=== PATIENT | female | born 1945 | race Caucasian/White ===

== ENCOUNTER 2019-05-29 22:56 | Inpatient (IN) ==
[2019-05-29] MEDS ORDERED: ACETAMINOPHEN 650 MG SUPP.RECT PR ONE (23:18)
[2019-05-29] MEDS ORDERED: cefTRIAXone 1 GM VIAL IV ONE (23:19)
[2019-05-29] MEDS ORDERED: 0.9 % SODIUM CHLORIDE 1,000 ML IV ONE ×2 (23:19)
--- NOTE | 2019-05-29 23:41 | Emergency Department Note ---
Fever HPI - General Chief Complaint: Fever Stated Complaint: fever, weakness Time Seen by Provider: 05/29/19 23:18 Source: EMS Mode of arrival: EMS Limitations: no limitations - History of Present Illness MD complaint: fever, weakness, other (Altered mental status) Onset (ago): hour(s) Associated symptoms: Reports: chills, rigors, nausea, vomiting Improves with: nothing Worsens with: nothing Treatments prior to arrival fever: other (Patient was seen and treated in the emergency department hours prior to return, patient was started on ciprofloxacin for urinary tract infection took that first dose here and went home seem to be doing okay and then had sudden decompensation. This decompensation included fever altered mental status vomiting and loss of control of bowels) - Related Data Home Medications Medication Instructions Recorded Confirmed pregabalin 50 mg capsule 50 mg PO TID 04/11/19 05/30/19 Previous Rx's Medication Instructions Recorded albuterol sulfate HFA 90 2 inh INHALATION .Q4-6H PRN #8.5 g 05/22/16 mcg/actuation aerosol inhaler lisinopril 5 mg tablet 5 mg PO QDAY #90 tab 12/14/18 methylprednisolone 4 mg tablets in 4 mg PO PER PKG DIR #21 tab 03/15/19 a dose pack insulin glargine (U-100) 100 10 unit SUB-Q QDAY #9 ml 04/05/19 unit/mL (3 mL) subcutaneous pen cyclobenzaprine 10 mg tablet 10 mg PO TID PRN #60 tab 04/11/19 cholecalciferol (vitamin D3) 50,000 unit PO MONTHLY #12 cap 04/28/19 50,000 unit capsule hydroxychloroquine 200 mg tablet 200 mg PO BID #180 tab 04/28/19 prednisone 5 mg tablet 5 mg PO QDAY #30 tab 04/28/19 leflunomide 20 mg tablet 20 mg PO QDAY #90 tab 05/12/19 blood sugar diagnostic strips See Dose Instructions .ROUTE 05/27/19 .MEDSUPPLY #100 each lancets 26 gauge See Dose Instructions .ROUTE 05/27/19 .MEDSUPPLY #100 each Ciprofloxacin [Cipro] 500 mg PO BID #14 tab 05/29/19 Allergies Allergy/AdvReac Type Severity Reaction Status Date / Time codeine Allergy Unknown Unknown Verified 05/29/19 23:09 ezetimibe [From Zetia] AdvReac Mild Diarrhea Verified 05/29/19 23:09 fenofibrate AdvReac Mild Diarrhea Verified 05/29/19 23:09 Lactobacillus AdvReac Mild Diarrhea Verified 05/29/19 23:09 Latex, Natural Rubber AdvReac Mild Rash Verified 05/29/19 23:09 Tnfkfdr-Amb-Wei Reductase AdvReac Mild Diarrhea Verified 05/29/19 23:09 Inhibitor Review of Systems Limitations: ROS unobtainable due to patients medical condition Fever PMH - Past Medical History PMFSH Narrative: All Active Problems (Last Reviewed 05/05/19 @ 12:49 by Jordyn Wilson PA-C) UTI (urinary tract infection) (Acute) Recurrent UTI (Acute) DDD (degenerative disc disease), lumbar (Chronic) Back pain (Acute) Squamous cell carcinoma (Chronic) Fibromyalgia (Chronic) Vasculitis (Acute) Uncontrolled type 2 diabetes mellitus (Chronic) Tachycardia (Acute) Rash (Acute) Rash of genital area (Acute) Polyarthralgia (Acute) Rheumatoid arthritis (Acute) Low vitamin D level (Chronic) Long-term current use of steroids (Acute) Dizziness (Acute) Osteoarthritis (Acute) Encounter for long-term current use of high risk medication (Acute) Inflammatory arthritis (Chronic) Systemic sclerosis (Chronic) History of tonsillectomy (Acute) History of cardiac catheterization (Acute) History of cholecystectomy (Acute) History of surgery (Acute) History of carpal tunnel repair (Acute) Allergic rhinitis due to pollen (Acute) Pseudophakia (Acute) Obesity (Acute) Hypertension, essential (Acute) Hyperlipidemia (Acute) Glaucoma (Acute) DM type 2 (diabetes mellitus, type 2) (Chronic) Chest pain (Acute) Asthma (Acute) Aortic stenosis (Acute) Past Surgical History (Last Reviewed 05/05/19 @ 12:49 by Jordyn Wilson PA-C) History of tonsillectomy (Acute) History of cardiac catheterization (Acute) History of cholecystectomy (Acute) History of surgery (Acute) History of carpal tunnel repair (Acute) - Social History smoking status: Former smoker Physical Exam Limitations: altered mental status General appearance: alert, in distress Head: atraumatic, normocephalic Eye: Present: normal appearance, PERRL, EOMI. Absent: scleral icterus, conjunct ival injection ENT: Present: normal oropharynx, mucous membranes moist Neck: Present: trachea midline. Absent: lymphadenopathy, thyromegaly Chest: Present: symmetric chest wall rise Respiratory: Present: normal lung sounds bilaterally. Absent: respiratory distress, wheezes, stridor, accessory muscle use, prolonged expiratory phase Cardiovascular: Present: normal rhythm, tachycardia. Absent: systolic murmur, diastolic murmur Abdominal: Present: soft. Absent: distention, tenderness, guarding, rebound, rigidity, organomegaly, mass Extremities: Absent: pedal edema, pretibial edema, calf tenderness Back: Absent: CVA tenderness (R), CVA tenderness (L), spinous process tenderness Neurological: Present: alert, oriented X3 Psychiatric: Present: normal affect, normal mood Skin: Present: warm, dry Course Course Narrative: Patient recently seen and discharged for urinary tract infection. Did receive first dose of ciprofloxacin here in the emergency department and was then disc harged. Patient seemed to be doing well initially but rapidly decompensated noting significant fever altered mental status loss of control of her bowels. Patient now in sepsis at this point in time. Vital Signs Temperature 103.2 F H 05/29/19 22:56 Pulse Rate 126 H 05/29/19 22:56 Respiratory Rate 30 H 05/29/19 22:56 Blood Pressure 146/101 05/29/19 22:56 Pulse Oximetry (%) 92 05/29/19 22:56 Temperature 100.6 F H 05/30/19 05:00 Pulse Rate 112 H 05/30/19 06:41 Respiratory Rate 31 H 05/30/19 06:41 Blood Pressure 96/55 05/30/19 06:41 Pulse Oximetry (%) 91 05/30/19 06:45 Fever - Lab Data Result diagrams: 05/29/19 23:30 05/29/19 23:30 Lab Results 05/29/19 05/29/19 05/29/19 Range/Units 23:30 23:30 23:30 WBC 4.0 L (4.5-11.0) K/mcL RBC 3.93 L (4.00-5.20) M/mcL Hgb 12.2 (12.0-15.0) g/dL Hct 36.6 (36.0-48.0) % MCV 93.1 (80.0-100.0) fL MCH 31.0 (26.0-34.0) pg MCHC 33.3 (31.0-36.0) g/dL RDW 13.7 (11.5-14.5) % Plt Count 235 (140-440) K/mcL MPV 9.1 (7.4-10.4) fL Gran % 94.7 H (38.0-78.0) % Lymph % (Auto) 5.1 L (15.5-49.0) % [place] % (Auto) 0.1 L (1.0-12.0) % Eos % (Auto) 0 (0.0-7.0) % Baso % (Auto) 0.1 (0.0-2.0) % Gran # 3.8 (1.8-8.0) K/mcL Lymph # (Auto) 0.2 L (1.5-4.8) K/mcL [place] # (Auto) 0 L (0.1-0.9) K/mcL Eos # (Auto) 0 (0.0-0.7) K/mcL Baso # (Auto) 0 (0.0-0.3) K/mcL VBG Lactic Acid 3.8 H (0.5-2.0) mmol/L Sodium 136 (133-145) mmol/L Potassium 3.6 (3.3-5.1) mmol/L Chloride 100 (96-108) mmol/L Carbon Dioxide 19 L (22-30) mmol/L Anion Gap 17.0 H (8-16) BUN 23 (8-23) mg/dl Creatinine 1.3 H (0.6-1.1) mg/dl GFR Calculation 41 Glucose 262 H (70-105) mg/dL Calcium 8.5 L (8.6-10.4) mg/dl Total Bilirubin 0.8 (0.0-1.0) mg/dL AST 30 (0-37) U/l ALT 24 (0-40) U/l Alkaline Phosphatase 127 H (39-117) U/L Total Protein 6.6 (5.9-8.4) gm/dL Albumin 3.7 (3.2-5.2) gm/dL Globulin 2.9 (2.2-3.7) gm/dL Albumin/Globulin Ratio 1.3 (1.0-2.3) Urine Color Urine Appearance Urine pH (5.0-9.0) Ur Specific [place] (1.000-1.035) Urine Protein (NEG) mg/dL Urine Glucose (UA) (NEG) mg/dL Urine Ketones (NEG) mg/dL Urine Occult Blood (<0.03) mg/dL Urine Nitrate (NEG) Urine Bilirubin (NEG) mg/dL Urine Urobilinogen (NEG) mg/dL Ur Leukocyte Esterase (NEG) /uL Urine RBC (0-1) /hpf Urine WBC (0-4) /hpf Ur Squamous Epith Cells (0-4) /hpf Urine Bacteria (0) /hpf Hyaline Casts (0-2) /lpf Urine Mucus (0) /hpf Ur Culture Indicated? 05/30/19 Range/Units 00:00 WBC (4.5-11.0) K/mcL RBC (4.00-5.20) M/mcL Hgb (12.0-15.0) g/dL Hct (36.0-48.0) % MCV (80.0-100.0) fL MCH (26.0-34.0) pg MCHC (31.0-36.0) g/dL RDW (11.5-14.5) % Plt Count (140-440) K/mcL MPV (7.4-10.4) fL Gran % (38.0-78.0) % Lymph % (Auto) (15.5-49.0) % [place] % (Auto) (1.0-12.0) % Eos % (Auto) (0.0-7.0) % Baso % (Auto) (0.0-2.0) % Gran # (1.8-8.0) K/mcL Lymph # (Auto) (1.5-4.8) K/mcL [place] # (Auto) (0.1-0.9) K/mcL Eos # (Auto) (0.0-0.7) K/mcL Baso # (Auto) (0.0-0.3) K/mcL VBG Lactic Acid (0.5-2.0) mmol/L Sodium (133-145) mmol/L Potassium (3.3-5.1) mmol/L Chloride (96-108) mmol/L Carbon Dioxide (22-30) mmol/L Anion Gap (8-16) BUN (8-23) mg/dl Creatinine (0.6-1.1) mg/dl GFR Calculation Glucose (70-105) mg/dL Calcium (8.6-10.4) mg/dl Total Bilirubin (0.0-1.0) mg/dL AST (0-37) U/l ALT (0-40) U/l Alkaline Phosphatase (39-117) U/L Total Protein (5.9-8.4) gm/dL Albumin (3.2-5.2) gm/dL Globulin (2.2-3.7) gm/dL Albumin/Globulin Ratio (1.0-2.3) Urine Color Yellow Urine Appearance Clear Urine pH 6.0 (5.0-9.0) Ur Specific [place] 1.011 (1.000-1.035) Urine Protein 100 A (NEG) mg/dL Urine Glucose (UA) 50 A (NEG) mg/dL Urine Ketones Neg (NEG) mg/dL Urine Occult Blood >=1.0 A (<0.03) mg/dL Urine Nitrate Neg (NEG) Urine Bilirubin Neg (NEG) mg/dL Urine Urobilinogen Neg (NEG) mg/dL Ur Leukocyte Esterase 25 A (NEG) /uL Urine RBC > 182 H (0-1) /hpf Urine WBC 20 H (0-4) /hpf Ur Squamous Epith Cells < 1 (0-4) /hpf Urine Bacteria 0 (0) /hpf Hyaline Casts 2 (0-2) /lpf Urine Mucus Few (0) /hpf Ur Culture Indicated? Yes - EKG Data EKG shows normal: sinus rhythm Rate: tachycardia Rhythm: NSR P waves: normal Heart block present: None ST segment elevation in: None ST segment depression in: None T wave inversions noted in: None QTc: normal Critical Care Time Critical Care Time: Yes Total Critical Care Time: 65 Attestation: This critical care time was direct patient care exclusive of other procedures. Disposition Pt seen by WHIRLEY OPERATOR/PA only: No Clinical Impression: Sepsis Qualifiers: Sepsis type: Escherichia coli Sepsis acute organ dysfunction status: with acute organ dysfunction Severe sepsis acute organ dysfunction type: encephalopathy Severe sepsis shock status: without septic shock Qualified Code(s): A41.51 - Sepsis due to Escherichia coli [E. coli] UTI (urinary tract infection) Qualifiers: Urinary tract infection type: acute cystitis Rheumatoid arthritis Qualifiers: Rheumatoid arthritis location: multiple sites Rheumatoid factor presence: without rheumatoid factor Qualified Code(s): M06.09 - Rheumatoid arthritis without rheumatoid factor, multiple sites DM type 2 (diabetes mellitus, type 2) Qualifiers: Diabetes mellitus termite helper insulin use: without penitentiary use Diabetes me llitus complication status: with unspecified complications Qualified Code(s): E11.8 - Type 2 diabetes mellitus with unspecified complications Disposition: Xfer As Inpt ([facility]) Condition: Critical
[2019-05-30] MEDS ORDERED: cefTRIAXone 1 GM VIAL IV ONE (00:02)
[2019-05-30 00:28] LABS: Basophils # (Auto) 0 K/mcL (0.0-0.3); Basophils % (Auto) 0.1 % (0.0-2.0); Eosinophils # (Auto) 0 K/mcL (0.0-0.7); Eosinophils % (Auto) 0 % (0.0-7.0); Granulocytes % (Auto) 94.7 % (38.0-78.0); Hematocrit 36.6 % (36.0-48.0); Hemoglobin 12.2 g/dL (12.0-15.0); Lymphocytes # (Auto) 0.2 K/mcL (1.5-4.8); Lymphocytes % (Auto) 5.1 % (15.5-49.0); Mean Cell Volume 93.1 fL (80.0-100.0); Mean Corpuscular HGB Conc 33.3 g/dL (31.0-36.0); Mean Platelet Volume 9.1 fL (7.4-10.4); Monocytes # (Auto) 0 K/mcL (0.1-0.9); Monocytes % (Auto) 0.1 % (1.0-12.0); Platelet Count 235 K/mcL (140-440); RBC 3.93 M/mcL (4.00-5.20); Red Cell Distribution Width 13.7 % (11.5-14.5)
[2019-05-30 00:45] LABS: ALT/SGPT 24 U/l (0-40); AST/SGOT 30 U/l (0-37); Albumin 3.7 gm/dL (3.2-5.2); Albumin/Globulin Ratio 1.3 (1.0-2.3); Alkaline Phosphatase 127 U/L (39-117); Bilirubin,Total 0.8 mg/dL (0.0-1.0); Blood Urea Nitrogen 23 mg/dl (8-23); Calcium 8.5 mg/dl (8.6-10.4); Carbon Dioxide 19 mmol/L (22-30); Chloride 100 mmol/L (96-108); Globulin 2.9 gm/dL (2.2-3.7); Glomerular Filtration Rate 41; Glucose 262 mg/dL (70-105)
[2019-05-30 00:58] LABS: Appearance,Urine CLEAR; Bacteria,Urine 0 /hpf (0); Bilirubin,Urine NEG (NEG); Color,Urine YELLOW; Culture Indicated,Urine YES; Glucose,Urine (UA) 50 mg/dL (NEG); Ketones,Urine NEG (NEG); Leukocyte Esterase,Urine 25 /uL (NEG); Mucus,Urine FEW /hpf (0); Nitrate,Urine NEG (NEG); Protein,Urine 100 mg/dL (NEG); Specific Gravity,Urine 1.011 (1.000-1.035); Urine Blood >=1.0 mg/dL (<0.03); Urine Hyaline Cast 2 /lpf (0-2); Urine RBC > 182 /hpf (0-1); Urine Squamous Epithelial Cell < 1 /hpf (0-4); Urine WBC 20 /hpf (0-4); Urobilinogen,Urine NEG (NEG)
[2019-05-30] MEDS ORDERED: 0.9 % SODIUM CHLORIDE 1,000 ML IV SCH ×4 (01:00→08:06)
[2019-05-30] MEDS: PIPERACILLIN SODIUM/TAZOBACTAM 3.375 GM in DEXTROSE 5% IN WATER 50 ML IV SCH ×4 (02:05→17:50)
[2019-05-30] MEDS ORDERED: INSULIN LISPRO 1 UNIT/0.01 ML UNIT SQ ONE ×2 (02:10→04:39)
[2019-05-30] MEDS ORDERED: ONDANSETRON 4 MG/2 ML VIAL ONE (02:10)
[2019-05-30] MEDS: ONDANSETRON 4 MG/2 ML VIAL IV PRN ×4 (02:11→17:50)
[2019-05-30] MEDS: INSULIN LISPRO 1 UNIT/0.01 ML UNIT SQ SCH ×6 (02:11→20:27)
[2019-05-30] MEDS ORDERED: 0.9 % SODIUM CHLORIDE 1,000 ML IV ONE (03:45)
[2019-05-30] MEDS: ACETAMINOPHEN 325 MG TABLET PO PRN ×2 (04:43→17:18)
[2019-05-30] MEDS ORDERED: 0.9 % SODIUM CHLORIDE 250 ML IV ONE ×4 (06:11→07:03)
[2019-05-30] MEDS ORDERED: HYDROCORTISONE SOD SUCC 100 MG VIAL IV ONE (06:14)
--- NOTE | 2019-05-30 07:21 | Internal Med History&Physical ---
Medical - H&P: HPI Patient information: Note initiated : 05/30/19 at 7:16 am Service Date, if different from initiated Date: [] Patient: Roro Simmons 73 y/o F admitted on 05/30/19 for fever, weakness. Chief Complaint: [] History of present illness: Ms. Simmons is a 73 year old F Who first presented to the ER during the day for hematuria and some bladder pain and urinary incontinence (urinary and bowel incontinence is common for her because of her chronic back pain and sciatica she says). se was diagnosed with UTI and discharged. She presented back to the ED several hours later with rigors and nausea vomiting headache. Patient states she went to bed Thursday night feeling fine but woke up tired Thursday morning with some abdominal discomfort over the lower central region she had some discomfort with urination. Abdominal pain is achy and nonradiating. Symptoms worsened throughout the day including the Rigor's later on. Last urine tract infection was a few months ago she went into clinic and received antibiotic. She receives spinal injections by Dr. Davis for chronic back pain. She denies any chest pain coughing shortness of breath. Bowel habits are normal for her which includes occasional diarrhea or constipation. In the ED she is found to be tachycardic tachypneic with altered mental status. He had a lactate of 3.8. And increased creatinine from earlier in the day. She started becoming hypotensive around shift change earlier this morning. And was started on vasopressors. Review of Systems: Positives as above. Denies chest pain/cough/dyspnea. Remaining 10 point review of system reviewed negative Medical - H&P: PMH Medical history: Medical History (Last Reviewed 05/05/19 @ 12:49 by Jordyn Wilson PA-C) DDD (degenerative disc disease), lumbar (Chronic) Back pain (Acute) Fibromyalgia (Chronic) Vasculitis (Acute) Uncontrolled type 2 diabetes mellitus (Chronic) Polyarthralgia (Acute) Rheumatoid arthritis (Acute) Low vitamin D level (Chronic) Long-term current use of steroids (Acute) Osteoarthritis (Acute) Encounter for long-term current use of high risk medication (Acute) Inflammatory arthritis (Chronic) Rheumatic disease (Suspected) Systemic sclerosis (Chronic) Allergic rhinitis due to pollen (Acute) Pseudophakia (Acute) Obesity (Acute) Hypertension, essential (Acute) Hyperlipidemia (Acute) Glaucoma (Acute) DM type 2 (diabetes mellitus, type 2) (Chronic) Chest pain (Acute) Asthma (Acute) Aortic stenosis (Acute) Past Surgical History (Last Reviewed 05/05/19 @ 12:49 by Jordyn Wilson PA-C) History of tonsillectomy (Acute) History of cardiac catheterization (Acute) History of cholecystectomy (Acute) History of surgery (Acute) History of carpal tunnel repair (Acute) Family History (Last Reviewed 05/05/19 @ 12:49 by Jordyn Wilson PA-C) Unknown Alcohol abuse Allergic rhinitis Family history of diabetes mellitus Family history of mental disorder Hyperlipidemia Hypertension Migraine Cerebrovascular accident Brother Alzheimer's disease Asthma Lupus erythematosus Father Alzheimer's disease Mother Alzheimer's disease Acute myocardial infarction Social History (Last Updated 05/05/19 @ 15:49 by Jordyn Wilson PA-C) Denies smoking Denies alcohol use Ambulates independently Lives at home with family Medical - H&P: Meds Home Medications Medication Instructions Recorded Confirmed Type albuterol sulfate HFA 90 2 inh INHALATION .Q4-6H PRN #8.5 g 05/22/16 05/30/19 Rx mcg/actuation aerosol inhaler lisinopril 5 mg tablet 5 mg PO QDAY #90 tab 12/14/18 05/30/19 Rx methylprednisolone 4 mg tablets in 4 mg PO PER PKG DIR #21 tab 03/15/19 05/30/19 Rx a dose pack insulin glargine (U-100) 100 10 unit SUB-Q QDAY #9 ml 04/05/19 05/30/19 Rx unit/mL (3 mL) subcutaneous pen cyclobenzaprine 10 mg tablet 10 mg PO TID PRN #60 tab 04/11/19 05/30/19 Rx pregabalin 50 mg capsule 50 mg PO TID 04/11/19 05/30/19 History cholecalciferol (vitamin D3) 50,000 unit PO MONTHLY #12 cap 04/28/19 05/30/19 Rx 50,000 unit capsule hydroxychloroquine 200 mg tablet 200 mg PO BID #180 tab 04/28/19 05/30/19 Rx prednisone 5 mg tablet 5 mg PO QDAY #30 tab 04/28/19 05/30/19 Rx leflunomide 20 mg tablet 20 mg PO QDAY #90 tab 05/12/19 05/30/19 Rx blood sugar diagnostic strips See Dose Instructions .ROUTE 05/27/19 Rx .MEDSUPPLY #100 each lancets 26 gauge See Dose Instructions .ROUTE 05/27/19 Rx .MEDSUPPLY #100 each Ciprofloxacin [Cipro] 500 mg PO BID #14 tab 05/29/19 05/30/19 Rx Allergies Allergy/AdvReac Type Severity Reaction Status Date / Time codeine Allergy Unknown Unknown Verified 05/29/19 23:09 ezetimibe [From Zetia] AdvReac Mild Diarrhea Verified 05/29/19 23:09 fenofibrate AdvReac Mild Diarrhea Verified 05/29/19 23:09 Lactobacillus AdvReac Mild Diarrhea Verified 05/29/19 23:09 Latex, Natural Rubber AdvReac Mild Rash Verified 05/29/19 23:09 Hxjhaax-Gwe-Gle Reductase AdvReac Mild Diarrhea Verified 05/29/19 23:09 Inhibitor Medical - H&P: Exam - Constitutional Vitals: Temp Pulse Resp BP Pulse Ox 100.6 F H 112 H 31 H 96/55 91 05/30/19 05:00 05/30/19 06:41 05/30/19 06:41 05/30/19 06:41 05/30/19 06:45 Exam: General: Alert, Awake, No acute Distress Eyes/N/T: EOMI, PEERL, DMM Head/Neck: neck supple, normocephalic atraumatic CV: RRR, 1/6 SM, normal s1/s2 Pulm: Clear b/l, no wheezing/rhonchi/rales Abd: soft, tender to palpation hypogastrium, +BS x4, protuberant Ext: no clubbing/cyanosis/edema Neuro: Alert, no focal deficits, moves all extremities, CN 2-12 grossly intact, symmetrical strength b/l upper/lower, sensations intact b/l upper/lower Skin: warm/dry Medical - H&P: Reslt - Labs CBC & Chem 7: 05/29/19 23:30 05/29/19 23:30 Labs: Short CBC 05/29/19 Range/Units 23:30 WBC 4.0 L (4.5-11.0) K/mcL Hgb 12.2 (12.0-15.0) g/dL Hct 36.6 (36.0-48.0) % Plt Count 235 (140-440) K/mcL BMP 05/29/19 23:30 Sodium 136 Potassium 3.6 Chloride 100 Carbon Dioxide 19 L BUN 23 Creatinine 1.3 H Glucose 262 H Calcium 8.5 L Liver Function 05/29/19 Range/Units 23:30 Total Bilirubin 0.8 (0.0-1.0) mg/dL AST 30 (0-37) U/l ALT 24 (0-40) U/l Alkaline Phosphatase 127 H (39-117) U/L Albumin 3.7 (3.2-5.2) gm/dL Urine 05/30/19 Range/Units 00:00 Urine Color Yellow Urine Appearance Clear Urine pH 6.0 (5.0-9.0) Ur Specific [place] 1.011 (1.000-1.035) Urine Protein 100 A (NEG) mg/dL Urine Glucose (UA) 50 A (NEG) mg/dL Medical - H&P: A/P - Narrative A/P Narrative: A: *Sepsic Shock: -lactic acidosis *UTI: *Abd pain: over bladder, but severe *Encephalopathy: 2/2 sepsis, Improved *ESPERANZA on CKD II: *DM w/hyperglycemia: A1c in 03.11 *RA on chronic Prednisone: *HTN: on lisinopril *DJD lumbar, chronic pain: Follows with pain clinic * P: -vasopressors -IVF's, f/u lactate -vanc/Zosyn, pending BC/UC. MRSA screen neg -i/o's, weights -ct abd -stress dose steroids (wean when off vasopressors) to home prednisone -pain control for chr LBP, will try lidoderm and APAP first before narcotics given hypotension -ACEI held -basal and SSI -pt/ot -ppx: lovenox/pepcid full code Medical - H&P: Qual - Stroke Symptom Onset Unknown: No - VTE Deep Vein Thrombosis/Pulmonary Embolism Present on Admission: No
[2019-05-30] MEDS ORDERED: VANCOMYCIN PER PHARMACY IV SCH (08:23)
[2019-05-30] MEDS ORDERED: NOREPINEPHRINE BITARTRATE 16 MG in 0.9 % SODIUM CHLORIDE 234 ML IV SCH (08:30)
[2019-05-30] MEDS: VANCOMYCIN 1,000 MG in 0.9 % SODIUM CHLORIDE 250 ML IV SCH ×2 (08:40→21:46)
[2019-05-30] MEDS ORDERED: PROCHLORPERAZINE 10 MG/2 ML VIAL IV PRN (09:35)
[2019-05-30] MEDS ORDERED: MAGNESIUM SULFATE 2 GM/50 ML BAG IV PRN (09:35)
[2019-05-30] MEDS ORDERED: POLYETHYLENE GLYCOL 3350 17 GM PACKET PO PRN (09:35)
[2019-05-30] MEDS ORDERED: IPRATROPIUM/ALBUTEROL 3 ML AMPUL.NEB NEB PRN (09:35)
[2019-05-30] MEDS ORDERED: POTASSIUM CHLORIDE 40 MEQ in DEXTROSE 5% IN WATER 500 ML IV PRN (09:35)
[2019-05-30] MEDS ORDERED: POTASSIUM CHLORIDE 20 MEQ TABLET PO PRN ×2 (09:35)
[2019-05-30] MEDS: ENOXAPARIN 40 MG/0.4 ML SYRINGE SQ SCH (09:37)
[2019-05-30] MEDS: FAMOTIDINE/PF 20 MG/2 ML VIAL IV SCH ×2 (09:37→21:46)
[2019-05-30] MEDS ORDERED: CYCLOBENZAPRINE 10 MG TABLET PO PRN (09:39)
[2019-05-30 09:50] LABS: Hematocrit 29.8 % (36.0-48.0); Hemoglobin 9.9 g/dL (12.0-15.0); Mean Cell Volume 93.6 fL (80.0-100.0); Mean Corpuscular HGB Conc 33.3 g/dL (31.0-36.0); Mean Platelet Volume 9.7 fL (7.4-10.4); Platelet Count 159 K/mcL (140-440); RBC 3.18 M/mcL (4.00-5.20); Red Cell Distribution Width 13.7 % (11.5-14.5); WBC 14.5 K/mcL (4.5-11.0)
[2019-05-30 10:23] LABS: Band Neutrophils % 37 % (0-10); Eosinophils % (Manual) 1 % (0-7); Hypochromasia 1+ (NONE SEEN); Lymphocytes % 4 % (15-49); Monocytes % (Manual) 7 % (1-12); Platelet Estimate NORMAL (NORMAL); RBC Morphology ABNORM (NORMAL); Segmented Neutrophils % 51 % (38-78)
[2019-05-30] MEDS: LIDOCAINE PATCH TOPICAL SCH (10:30)
[2019-05-30] MEDS: HYDROcodone/APAP 5/325MG TABLET PO PRN ×2 (10:30→17:18)
[2019-05-30] MEDS: 0.9 % SODIUM CHLORIDE 1,000 ML IV SCH (10:33)
[2019-05-30 11:04] LABS: ALT/SGPT 21 U/l (0-40); AST/SGOT 25 U/l (0-37); Albumin 2.8 gm/dL (3.2-5.2); Albumin/Globulin Ratio 1.5 (1.0-2.3); Alkaline Phosphatase 83 U/L (39-117); Bilirubin,Direct < 0.2 mg/dL (0.0-0.3); Bilirubin,Total 0.3 mg/dL (0.0-1.0); Blood Urea Nitrogen 26 mg/dl (8-23); Calcium 7.4 mg/dl (8.6-10.4); Carbon Dioxide 17 mmol/L (22-30); Chloride 106 mmol/L (96-108); Globulin 1.9 gm/dL (2.2-3.7); Glomerular Filtration Rate 32; Glucose 139 mg/dL (70-105); Lactate Dehydrogenase 268 U/L (94-250); Triglycerides 93 mg/dl (<150)
[2019-05-30] MEDS ORDERED: MAGNESIUM SULFATE 2 GM/50 ML BAG IV ONE (11:06)
--- NOTE | 2019-05-30 11:41 | Cat Scan Report ---
History: Lower abdominal and flank pain, with fever and weakness TECHNIQUE: The abdomen was imaged following oral but no intravenous contrast the lung bases through the symphysis pubis. Sagittal and coronal reformats were created. Radiation exposure was limited using dose reduction technology. FINDINGS: There is mild pulmonary fibrosis in the basilar segments of the left lower lobe and the inferior segment lingula. Small hiatus hernia is noted. Evaluation of abdominal organs without intravenous contrast is somewhat limited. The liver and spleen are normal in size and homogeneous. The gallbladder is been removed. The bile ducts are nondilated. There is no apparent mass or inflammation the pancreas. The adrenals are normal. Mild hydronephrosis is present in the right kidney due to a 4 x 6 mm calculus located in the distal right ureter near the bladder. There are no other stones within the right kidney. Patient does have an exophytic 1.5 cm cyst arising from the pole right kidney. There is mild perinephric stranding on the right side. In the left kidney there is no hydronephrosis. In the upper pole infundibulum and there is a 4 x 6 mm calcification. There is moderate perinephric stranding surrounding the left kidney. There is also a small subcapsular fluid collection lateral to the upper pole left kidney. Left ureter is decompressed. There is a large amount of calcified plaque along the wall of normal caliber aorta and iliac arteries. Mild plaque formation is seen at the origins of the renal arteries. Oral contrast does pass through stomach and small intestine to the mid ileum without obstruction. Liquefied stool seen within the colon. There is no evidence of bowel obstruction or diverticulitis. The appendix is noninflamed. The urinary bladder is partially decompressed by a Rodriguez catheter. The uterus and ovaries are atrophic. No ascites or adenopathy are present within the abdomen or pelvis. There is degenerative disc disease arthritis in the spine with the greatest degeneration at L4-5. Moderate central canal stenosis is present at L4-5. IMPRESSION: 4 x 6 mm calculus above the ureterovesical junction in the distal right ureter causing mild hydronephrosis. Nonobstructing intermediate-sized stone in the upper portion of the left kidney. Small subcapsular fluid collection in the upper pole of the left kidney and moderate perinephric stranding around the left kidney which may be due to prior episode of obstruction. Spinal canal stenosis at L4-5 due to degenerative changes Interpreted and Authenticated by: Ilir Arguelles 05/30/19
[2019-05-30] MEDS: 0.9 % SODIUM CHLORIDE 10 ML SYRINGE IV SCH ×2 (13:24→21:51)
[2019-05-30] MEDS: HYDROCORTISONE SOD SUCC 100 MG VIAL IV SCH ×2 (13:27→22:06)
--- NOTE | 2019-05-30 14:17 | General Surgery Progress Note ---
Surgical - Auxillary Note - Subjective Patient Information: Note initiated : 05/30/19 at 2:16 pm Service Date, if different from initiated Date: [] Patient: Roro Simmons a 73 y/o F admitted on 05/30/19 for fever, weakness. Chief Complaint: [] patient with distal ureteral stone. will take to OR tomorrow at noon for removal. Full consult dictated.
[2019-05-30] MEDS ORDERED: PROMETHAZINE 25 MG/ML VIAL IV PRN (14:48)
[2019-05-30] MEDS ORDERED: PROMETHAZINE 25 MG/ML VIAL ONE (14:51)
[2019-05-30] MEDS: PREGABALIN 25 MG CAPSULE PO SCH ×3 (14:55→22:06)
--- NOTE | 2019-05-30 15:09 | Consultation ---
DATE OF CONSULTATION: 05/30/2019 REQUESTING PHYSICIAN: Lyndon Olson DO HISTORY OF PRESENT ILLNESS: The patient is a 73-year-old lady who was seen in the ER for hematuria and bladder pain. She was diagnosed with a urinary tract infection and discharged. She presented back to the emergency room with rigors, nausea and vomiting. She states that she has had right sciatic pain, was given injections and this never helped. She has had the pain for the last 4 or 5 months. There was some discomfort with urination. A CT scan was obtained which did show a distal right ureteral stone approximately 6 to 8 mm in size. It does appear that she does have an obstructive pyelonephritis, but is improving. I have been asked to evaluate her. She has never had a stone before, does complain of some urinary incontinence. PAST MEDICAL HISTORY: Degenerative joint disease, fibromyalgia, rheumatoid arthritis, hypertension, diabetes, and aortic stenosis. ALLERGIES: CODEINE, ENZALUTAMIDE, FENFEBRONATE, LACTOBACILLUS, LATEX, NATURAL RUBBER, STATINS. PAST SURGICAL HISTORY: Tonsillectomy, cardiac catheterization, cholecystectomy, carpal tunnel. FAMILY HISTORY: Diabetes, hypertension. SOCIAL HISTORY: Does not smoke, lives at home with her family. CURRENT MEDICATIONS: 1. Albuterol. 2. Lisinopril. 3. Insulin. 4. Cyclobenzaprine. 5. Hydroxychloroquine. 6. Ciprofloxacin. REVIEW OF SYSTEMS: CARDIAC: She did have shortness of breath, tachycardia. RESPIRATORY: No wheezing, coughing but positive shortness of breath. GI: Denies any bowel discomfort. The rest of a 12-point review of systems is negative. PHYSICAL EXAMINATION: GENERAL: This is a pleasant lady in no apparent distress. HEENT: Atraumatic, normocephalic. Extraocular movement. NECK: Supple. HEART: Regular rate and rhythm. LUNGS: Clear to auscultation. ABDOMEN: Soft, positive right back pain which extends down to the groin. GENITOURINARY: Deferred. EXTREMITIES: Without clubbing, cyanosis or edema. NEUROLOGIC: Cranial nerves II-XII grossly intact. LABORATORY DATA: White count 14.5, creatinine 1.6. IMPRESSION: Patient with an obstructive stone on the right side. This is in the distal ureter and she may pass this on her own. I will start her on Flomax. I did talk to her about the options. First, I would medically stabilize her and Dr. Sanchez is the hospitalist taking care of her. If it is okay by him we would take her to surgery to remove the stone on the right. I have gone over the procedure with her and complications including bleeding, infection, pain and not being able to fragment the stone, or need for a stent, and she understands. Surgery will be scheduled tomorrow at noon if everything is cleared. I have answered all her questions and a full PARQ discussion was held. PLAN: Right ureteroscopy with laser lithotripsy and stent placement tomorrow. CLARISA:cliff Job ID: [id number] Doc ID: [id number] Rashid Alfred MD
[2019-05-30] MEDS ORDERED: TAMSULOSIN 0.4 MG CAPSULE PO SCH (21:00)
[2019-05-30] MEDS ORDERED: SENNOSIDES 1 TABLET PO PRN (21:00)
[2019-05-30] MEDS: HYDROXYCHLOROQUINE 200 MG TABLET PO SCH ×2 (21:51→22:06)
[2019-05-31] MEDS: PIPERACILLIN SODIUM/TAZOBACTAM 3.375 GM in DEXTROSE 5% IN WATER 50 ML IV SCH ×5 (00:12→23:58)
[2019-05-31] MEDS: 0.9 % SODIUM CHLORIDE 1,000 ML IV SCH ×2 (03:49→11:29)
[2019-05-31] MEDS: 0.9 % SODIUM CHLORIDE 10 ML SYRINGE IV SCH ×4 (05:21→21:50)
[2019-05-31] MEDS: HYDROCORTISONE SOD SUCC 100 MG VIAL IV SCH ×3 (05:29→21:50)
[2019-05-31 05:36] LABS: Hematocrit 30.3 % (36.0-48.0); Hemoglobin 10.2 g/dL (12.0-15.0); Mean Cell Volume 93.2 fL (80.0-100.0); Mean Corpuscular HGB Conc 33.6 g/dL (31.0-36.0); Mean Platelet Volume 9.9 fL (7.4-10.4); Platelet Count 143 K/mcL (140-440); RBC 3.26 M/mcL (4.00-5.20); Red Cell Distribution Width 13.8 % (11.5-14.5)
[2019-05-31 06:05] LABS: ALT/SGPT 21 U/l (0-40); AST/SGOT 27 U/l (0-37); Albumin 2.7 gm/dL (3.2-5.2); Alkaline Phosphatase 85 U/L (39-117); Bilirubin,Direct < 0.2 mg/dL (0.0-0.3); Bilirubin,Total 0.4 mg/dL (0.0-1.0); Blood Urea Nitrogen 22 mg/dl (8-23); Carbon Dioxide 19 mmol/L (22-30); Chloride 109 mmol/L (96-108); Globulin 2.8 gm/dL (2.2-3.7); Glomerular Filtration Rate 32; Glucose 202 mg/dL (70-105); Lactate Dehydrogenase 288 U/L (94-250); Phosphorous 3.1 mg/dL (2.7-4.5); Triglycerides 143 mg/dl (<150)
[2019-05-31 06:28] LABS: Band Neutrophils % 39 % (0-10); Lymphocytes % 1 % (15-49); Monocytes % (Manual) 4 % (1-12); Platelet Estimate NORMAL (NORMAL); RBC Morphology NORMAL (NORMAL); Segmented Neutrophils % 56 % (38-78)
[2019-05-31] MEDS ORDERED: NOREPINEPHRINE BITARTRATE 16 MG in 0.9 % SODIUM CHLORIDE 234 ML IV PRN ×2 (07:45→13:49)
[2019-05-31] MEDS ORDERED: predniSONE 5 MG TABLET PO SCH (08:00)
[2019-05-31] MEDS: INSULIN LISPRO 1 UNIT/0.01 ML UNIT SQ SCH ×5 (08:32→20:04)
[2019-05-31] MEDS: ENOXAPARIN 40 MG/0.4 ML SYRINGE SQ SCH (08:33)
[2019-05-31] MEDS: HYDROXYCHLOROQUINE 200 MG TABLET PO SCH ×2 (08:33→21:49)
[2019-05-31] MEDS: PREGABALIN 25 MG CAPSULE PO SCH ×4 (08:33→23:15)
[2019-05-31] MEDS: FAMOTIDINE/PF 20 MG/2 ML VIAL IV SCH ×2 (08:42→21:49)
[2019-05-31] MEDS ORDERED: INSULIN GLARGINE, HUMAN 1 UNIT/0.01 ML SQ SCH (09:00)
--- NOTE | 2019-05-31 09:38 | Internal Med Progress Note ---
Medical - PN: Subj Patient information: Note initiated : 05/31/19 at 9:34 am Service Date, if different from initiated Date: [] Patient: Roro Simmons 73 y/o F admitted on 05/30/19 for fever, weakness. Chief Complaint: [] Interval history: Ms. Simmons is a 73 year old F Who first presented to the ER during the day for hematuria and some bladder pain and urinary incontinence (urinary and bowel incontinence is common for her because of her chronic back pain and sciatica she says). se was diagnosed with UTI and discharged. She presented back to the ED several hours later with rigors and nausea vomiting headache. Patient states she went to bed Thursday night feeling fine but woke up tired Thursday morning with some abdominal discomfort over the lower central region she had some discomfort with urination. Abdominal pain is achy and nonradiating. Symptoms worsened throughout the day including the Rigor's later on. Last urine tract infection was a few months ago she went into clinic and received antibiotic. She receives spinal injections by Dr. Davis for chronic back pain. She denies any chest pain coughing shortness of breath. Bowel habits are normal for her which includes occasional diarrhea or constipation. In the ED she is found to be tachycardic tachypneic with altered mental status. He had a lactate of 3.8. And increased creatinine from earlier in the day. She started becoming hypotensive around shift change earlier this morning. And was started on vasopressors. 05/31-patient currently on pressors. White count at 19,000 with 39% bands with procalcitonin 73.24. Patient due for cystoscopy/stent placement at noon. On broad antibiotic coverage. Gram-negative backslide on blood cultures. T-max 99.2. Systolic mid 90s, creatinine 1.6. Continue ICU care - Constitutional Vitals: Vital Signs Temp Pulse Resp BP Pulse Ox 99.2 F H 98 H 23 H 91/72 98 05/31/19 08:01 05/31/19 08:01 05/31/19 08:01 05/31/19 08:01 05/31/19 08:01 Period Temp Pulse Resp BP Sys/Patricio Pulse Ox Last 24 Hr 96.6 F-100.4 F 82-110 15-37 76-152/47-124 92-98 Intake and Output 05/30/19 05/31/19 05/31/19 21:59 05:59 13:59 Intake Total 824 410 300 Output Total 1580 970 300 Balance -756 -560 0 Weight 167 lb 12.8 oz Intake & Output: Intake & Output 05/30/19 05/31/19 05/31/19 21:59 05:59 13:59 Intake Total 824 410 300 Output Total 1580 970 300 Balance -756 -560 0 Weight 167 lb 12.8 oz Intake: IV 164 50 300 Levophed 16 mg In Sodium 14 Chloride 0.9% 234 ml @ 10 MCG/ MIN 9.38 mls/hr IV Q24H [facility] Rx# :[id number] Zosyn 3.375 gm In Dextrose 5% 100 50 50 in Water 50 ml @ 100 mls/hr IV Q6H [facility] Rx#:[id number] Vancomycin 1,000 mg In Sodium 250 Chloride 0.9% 250 ml @ 250 mls/ hr IV Q12H [facility] Rx#:[id number] Oral 660 360 Output: Urine Catheter Amount 1580 970 300 Other: Meal Dinner Percent of Meal Consumed 50% Urine Appearance Clear Uretheral (Rodriguez) Clear Clear Clear Sediment Urine Color Pale Uretheral (Rodriguez) Light Jordyn Pale Stool Size Moderate Stool Color Brown Stool Consistency Liquid Loose # of times incontinent of 1 Bowels General appearance: no acute distress Exam: Alert and respond to commands Systolics around 90s No telemetry events Minimal abdominal discomfort Nonlabored breathing Medical - PN: Obj Da - Labs CBC & Chem 7: 05/31/19 03:45 05/31/19 03:45 Labs: Abnormal Lab Results 05/31/19 05/31/19 05/30/19 03:45 03:45 08:34 WBC 19.0 H RBC 3.26 L Hgb 10.2 L Hct 30.3 L Gran % Lymph % (Auto) [place] % (Auto) Lymph # (Auto) [place] # (Auto) Band Neutrophils % 39 H Lymphocytes % 1 L RBC Morphology Hypochromasia VBG Lactic Acid Chloride 109 H Carbon Dioxide 19 L 17 L Anion Gap BUN 26 H Creatinine 1.6 H 1.6 H Glucose 202 H 139 H Calcium 8.0 L 7.4 L Magnesium 1.2 L GGT 55 H 67 H Alkaline Phosphatase Lactate Dehydrogenase 288 H 268 H Total Protein 5.5 L 4.7 L Albumin 2.7 L 2.8 L Globulin 1.9 L Urine Protein Urine Glucose (UA) Urine Occult Blood Ur Leukocyte Esterase Urine RBC Urine WBC 05/30/19 05/30/19 05/30/19 08:34 03:00 00:00 WBC 14.5 H RBC 3.18 L Hgb 9.9 L Hct 29.8 L Gran % Lymph % (Auto) [place] % (Auto) Lymph # (Auto) [place] # (Auto) Band Neutrophils % 37 H Lymphocytes % 4 L RBC Morphology Abnorm A Hypochromasia 1+ A VBG Lactic Acid 3.9 H Chloride Carbon Dioxide Anion Gap BUN Creatinine Glucose Calcium Magnesium GGT Alkaline Phosphatase Lactate Dehydrogenase Total Protein Albumin Globulin Urine Protein 100 A Urine Glucose (UA) 50 A Urine Occult Blood >=1.0 A Ur Leukocyte Esterase 25 A Urine RBC > 182 H Urine WBC 20 H 05/29/19 05/29/19 05/29/19 23:30 23:30 23:30 WBC 4.0 L RBC 3.93 L Hgb Hct Gran % 94.7 H Lymph % (Auto) 5.1 L Johnson % (Auto) 0.1 L Lymph # (Auto) 0.2 L [place] # (Auto) 0 L Band Neutrophils % Lymphocytes % RBC Morphology Hypochromasia VBG Lactic Acid 3.8 H Chloride Carbon Dioxide 19 L Anion Gap 17.0 H BUN Creatinine 1.3 H Glucose 262 H Calcium 8.5 L Magnesium GGT Alkaline Phosphatase 127 H Lactate Dehydrogenase Total Protein Albumin Globulin Urine Protein Urine Glucose (UA) Urine Occult Blood Ur Leukocyte Esterase Urine RBC Urine WBC Meds: Medications Acetaminophen (Tylenol) 650 mg PO Q6HP PRN PRN Reason: PAIN/FEVER > 101 Last Admin: 05/30/19 17:18 Dose: 325 mg Documented by: Hydrocodone Bitart/Acetaminophen ([place] 5/325mg) 1 tab PO Q4HP PRN PRN Reason: PAIN LEVEL 3-6 Last Admin: 05/30/19 17:18 Dose: 1 tab Documented by: Albuterol/Ipratropium (Duoneb) 3 ml NEB Q4HP PRN PRN Reason: Shortness Of Breath Cyclobenzaprine HCl (Flexeril) 10 mg PO TIDP PRN PRN Reason: muscle pain Diagnostic Test (Pha) (Accu-Chek) 1 each FS ACHS [facility] Last Admin: 05/31/19 08:30 Dose: 1 each Documented by: Enoxaparin Sodium (Lovenox) 40 mg SQ DAILY [facility] Last Admin: 05/31/19 08:33 Dose: Not Given Documented by: Famotidine (Pepcid) 20 mg IV Q12 [facility] Last Admin: 05/31/19 08:42 Dose: 20 mg Documented by: Hydrocortisone Sodium Succinate (Solu-Cortef) 50 mg IV Q8 [facility] Last Admin: 05/31/19 05:29 Dose: 50 mg Documented by: Hydroxychloroquine Sulfate (Plaquenil) 200 mg PO BID [facility] Last Admin: 05/31/19 08:33 Dose: Not Given Documented by: Piperacillin Sod/Tazobactam (Sod 3.375 gm/ Dextrose) 50 mls @ 100 mls/hr IV Q6H [facility]; Protocol Last Infusion: 05/31/19 06:20 Dose: Infused Documented by: Potassium Chloride 40 meq/ (Dextrose) 520 mls @ 130 mls/hr IV UD PRN PRN Reason: Potassium < 3 Magnesium Sulfate (Magnesium Sulfate) 2 gm in 50 mls @ 50 mls/hr IV UD PRN PRN Reason: Magnesium </= 1.6 Sodium Chloride (Sodium Chloride 0.9%) 1,000 mls @ 20 mls/hr IV .Q24H [facility] Stop: 06/01/19 12:02 Last Admin: 05/31/19 03:49 Dose: 20 mls/hr Documented by: Norepinephrine Bitartrate 16 (mg/ Sodium Chloride) 250 mls @ 9.38 mls/hr IV Q24HP PRN; Protocol PRN Reason: Hypotension Insulin Glargine (Lantus) 10 unit SQ DAILY [facility] Last Admin: 05/31/19 08:36 Dose: 10 units Documented by: Insulin Human Lispro (Humalog) 0 unit SQ ACHS [facility]; Protocol Last Admin: 05/31/19 08:32 Dose: Not Given Documented by: Lidocaine (Lidoderm) 1 patch TOPICAL DAILY@1000 [facility] Last Admin: 05/30/19 10:30 Dose: 1 patch Documented by: Ondansetron HCl (Zofran) 4 mg IV Q4-6HP PRN PRN Reason: Nausea And Vomiting Last Admin: 05/30/19 17:50 Dose: 4 mg Documented by: Polyethylene Glycol (Miralax) 17 gm PO DAILYP PRN PRN Reason: Constipation Potassium Chloride (Kdur) 40 meq PO UD PRN PRN Reason: Potssium is 3-3.5 Last Admin: 05/30/19 12:18 Dose: 40 meq Documented by: Potassium Chloride (Kdur) 40 meq PO UD PRN PRN Reason: Potassium < 3 Prednisone (Prednisone) 5 mg PO QAC [facility] Last Admin: 05/31/19 08:41 Dose: 5 mg Documented by: Pregabalin (Lyrica) 25 mg PO TID [facility] Last Admin: 05/31/19 08:33 Dose: Not Given Documented by: Prochlorperazine (Compazine) 10 mg IV Q6HP PRN PRN Reason: Nausea And Vomiting Last Admin: 05/30/19 10:33 Dose: 10 mg Documented by: Promethazine HCl (Phenergan) 12.5 mg IV Q6HP PRN PRN Reason: Nausea And Vomiting Last Admin: 05/30/19 14:55 Dose: 12.5 mg Documented by: Senna (Senokot) 2 tab PO HSP PRN PRN Reason: Constipation Sodium Chloride (Saline Flush) 10 ml IV Q8 [facility] Last Admin: 05/31/19 05:21 Dose: 10 ml Documented by: Tamsulosin HCl (Flomax) 0.4 mg PO HS [facility] Last Admin: 05/30/19 21:51 Dose: 0.4 mg Documented by: Vancomycin HCl (Vancomycin Per Pharmacy) 1 order IV UD [facility]; Protocol Medical - PN: A/P - Time Spent With Patient Total time spent is greater than 50% in coordination of care (as documented) at patient's floor/unit and/or counseling patient: Greater than 35 minutes (Critical care time) (1) Bacteremia due to Gram-negative bacteria Status: Acute Assessment and plan: * Gram-negative bacteremia secondary to obstructive uropathy-on broad antibiotic coverage * Obstructive uropathy-right ureterovesical junction. Cystoscopy today. * Septic shock second to gram-negative bacteremia on vasopressors/blood antibiotics and management per guidelines. Procalcitonin downtrending from - * Acute kidney injury secondary to septic shock endorgan dysfunction-continue monitoring and management of septic shock * Acute encephalopathy-clinically improved * DM type II-continue sliding scale insulin * History rheumatoid arthritis on prednisone * History of chronic back pain/sciatica-follows with pain clinic Dr. Aragon * History of hypertension hold antihypertensives * Prophylaxis Lovenox Plan * De-escalate antibiotics to Zosyn * Review post procedure * Wean vasopressors as tolerated * Continue stress dose steroid * CC diet/basal prandial insulin * Discharge planning Current Visit: Yes Medical - PN: Qual - Stroke Symptom Onset Unknown: No - VTE Deep Vein Thrombosis/Pulmonary Embolism Present on Admission: No
[2019-05-31] MEDS: VANCOMYCIN 1,000 MG in 0.9 % SODIUM CHLORIDE 250 ML IV SCH (09:56)
[2019-05-31] MEDS ORDERED: MIDAZOLAM 2 MG/2 ML VIAL IV ONE (12:06)
[2019-05-31] MEDS ORDERED: ONDANSETRON 4 MG/2 ML VIAL IV ONE (12:06)
[2019-05-31] MEDS ORDERED: fentaNYL 100 MCG/2 ML VIAL IV ONE (12:06)
[2019-05-31] MEDS ORDERED: PROPOFOL 200 MG/20 ML VIAL IV ONE (12:06)
[2019-05-31] MEDS ORDERED: LIDOCAINE HCL/PF 100 MG/5 ML SYRINGE IV ONE (12:06)
[2019-05-31] MEDS ORDERED: DEXAMETHASONE 10 MG/ML VIAL IV ONE (12:06)
[2019-05-31] MEDS ORDERED: PHENYLEPHRINE 10 MG/ML VIAL IV ONE (12:06)
--- NOTE | 2019-05-31 12:45 | Brief Operative Note ---
Date of procedure: 05/31/19 Pre-op diagnosis: right ureteral stone Post-op diagnosis: same Procedure: right ureteroscopy, laser litho, stent Grafts/Implants: Yes (ureteral stent) Anesthesia: GLMA Findings: see note Complications: none Surgeon: Rashid Alfred Specimens Removed/Pathology: other (ureteral stone) Condition: stable Disposition: PACU
[2019-05-31] MEDS ORDERED: IPRATROPIUM/ALBUTEROL 3 ML AMPUL.NEB NEB PRN ×2 (13:02→13:49)
[2019-05-31] MEDS ORDERED: diphenhydrAMINE 50 MG/ML VIAL IV PRN (13:02)
[2019-05-31] MEDS ORDERED: METOPROLOL TARTRATE 5 MG/5 ML VIAL IV PRN (13:02)
[2019-05-31] MEDS ORDERED: ATROPINE SULFATE 0.4 MG/ML VIAL IV PRN (13:02)
[2019-05-31] MEDS ORDERED: ePHEDrine 50 MG/ML AMPUL IV PRN (13:02)
[2019-05-31] MEDS ORDERED: METHOCARBAMOL 1,000 MG/10 ML VIAL IV PRN (13:02)
[2019-05-31] MEDS ORDERED: fentaNYL 100 MCG/2 ML VIAL IV PRN (13:02)
[2019-05-31] MEDS: LIDOCAINE PATCH TOPICAL SCH (13:46)
[2019-05-31] MEDS ORDERED: PROCHLORPERAZINE 10 MG/2 ML VIAL IV PRN (13:49)
[2019-05-31] MEDS ORDERED: CYCLOBENZAPRINE 10 MG TABLET PO PRN (13:49)
[2019-05-31] MEDS ORDERED: ONDANSETRON 4 MG/2 ML VIAL IV PRN (13:49)
[2019-05-31] MEDS ORDERED: HYDROcodone/APAP 5/325MG TABLET PO PRN (13:49)
[2019-05-31] MEDS ORDERED: 0.9 % SODIUM CHLORIDE 1,000 ML IV SCH (13:49)
[2019-05-31] MEDS ORDERED: POTASSIUM CHLORIDE 40 MEQ in DEXTROSE 5% IN WATER 500 ML IV PRN (13:49)
[2019-05-31] MEDS ORDERED: MAGNESIUM SULFATE 2 GM/50 ML BAG IV PRN (13:49)
[2019-05-31] MEDS ORDERED: ACETAMINOPHEN 325 MG TABLET PO PRN (13:49)
[2019-05-31] MEDS ORDERED: POLYETHYLENE GLYCOL 3350 17 GM PACKET PO PRN (13:49)
[2019-05-31] MEDS ORDERED: PROMETHAZINE 25 MG/ML VIAL IV PRN (13:49)
[2019-05-31] MEDS ORDERED: POTASSIUM CHLORIDE 20 MEQ TABLET PO PRN ×2 (13:49)
[2019-05-31] MEDS ORDERED: SENNOSIDES 1 TABLET PO PRN (13:49)
--- NOTE | 2019-05-31 13:54 | Operative Note ---
DATE OF OPERATION: 05/31/2019 PREOPERATIVE DIAGNOSIS: Right ureteral stone. POSTOPERATIVE DIAGNOSIS: Right ureteral stone. PROCEDURE: Cystoscopy, ureteroscopy, laser lithotripsy with stone removal, and stent placement. SURGEON: Rashid Alfred MD INDICATION: The patient is a 73-year-old lady who came in with urosepsis. She did demonstrate a distal right ureteral stone and she presents now for treatment. She has defervesced and is off pressors. PROCEDURE IN DETAIL: The patient was identified and consent was signed. She was given general anesthesia, placed in lithotomy position, prepped and draped in a standard fashion. Cystourethroscopy showed orifices were in their normal position. Bladder was normal. No tumors or masses were seen. We were able to cannulate the right orifice with the Glidewire and then was able to pass this next to the stone. There was a phlebolith in the lower pelvis, which was not in the urinary system. We then did ureteroscopy and was able to see the stone, and using the holmium laser, we were able to break this up. I was then able to remove fragments with the basket. At no time did we perforate the ureter. At the end of the procedure, I decided to leave a stent. A 6 x 24 stent was then placed using the Seldinger technique which showed both a good curl in the kidney and the bladder. The string was left attached. Her bladder was emptied. The string was taped to the perineum and she was awoken and taken to the recovery room in stable condition. She tolerated the procedure well. RichardZ:cliff Job ID: [id number] Doc ID: [id number] Rashid Alfred MD
--- NOTE | 2019-05-31 17:10 | Surgical Pathology Report ---
HISTOLOGY SPECIMEN MICROSCOPIC DIAGNOSIS MINERAL MATERIAL, RIGHT URETER, EXTRACTION: -- CALCULUS (GROSS DIAGNOSIS) SUBMITTED FOR CHEMICAL ANALYSIS. (EBD:adj) PROCEDURAL IMPRESSION Right ureteral stone. GROSS DESCRIPTION Received without fixative designated as right ureter stone, is a 0.6 x 0.4 x 0.3 cm irregular rough-surfaced brown-black stone-like fragment. Gross only, no sections taken. (KGW:adj) Electronically Signed by: Nasreen Serrato M.D.
[2019-05-31] MEDS ORDERED: LORazepam 2 MG/ML VIAL ONE (17:12)
[2019-05-31] MEDS ORDERED: ACETAMINOPHEN 1,000 MG/100 ML BOTTLE IV ONE (17:15)
[2019-05-31] MEDS ORDERED: LORazepam 2 MG/ML VIAL IV ONE (17:18)
[2019-05-31] MEDS ORDERED: TAMSULOSIN 0.4 MG CAPSULE PO SCH (21:00)
[2019-05-31] MEDS ORDERED: LIDOCAINE PATCH TOPICAL SCH (22:00)
[2019-06-01] MEDS: PIPERACILLIN SODIUM/TAZOBACTAM 3.375 GM in DEXTROSE 5% IN WATER 50 ML IV SCH (05:19)
[2019-06-01] MEDS: HYDROCORTISONE SOD SUCC 100 MG VIAL IV SCH (05:19)
[2019-06-01] MEDS: 0.9 % SODIUM CHLORIDE 10 ML SYRINGE IV SCH ×3 (05:20→21:20)
--- NOTE | 2019-06-01 07:32 | General Surgery Progress Note ---
Surgical - Auxillary Note - Subjective Patient Information: Note initiated : 06/01/19 at 7:29 am Service Date, if different from initiated Date: [] Patient: Roro Simmons 73 y/o F admitted on 05/30/19 for fever, weakness. Chief Complaint: ureteral stone Patient is feeling better. has questions about her meds and will have her talk to Dr. Sanchez. She can remove the stent on Thursday and have explained this too her. Will f/u in 2 weeks.
[2019-06-01] MEDS: INSULIN LISPRO 1 UNIT/0.01 ML UNIT SQ SCH ×5 (07:43→21:18)
[2019-06-01] MEDS: FAMOTIDINE/PF 20 MG/2 ML VIAL IV SCH ×2 (07:57→21:17)
[2019-06-01] MEDS: PREGABALIN 25 MG CAPSULE PO SCH (07:58)
[2019-06-01] MEDS: HYDROXYCHLOROQUINE 200 MG TABLET PO SCH ×2 (07:58→21:17)
[2019-06-01] MEDS ORDERED: predniSONE 5 MG TABLET PO SCH (08:00)
[2019-06-01] MEDS ORDERED: INSULIN GLARGINE, HUMAN 1 UNIT/0.01 ML SQ SCH (09:00)
[2019-06-01] MEDS ORDERED: ENOXAPARIN 40 MG/0.4 ML SYRINGE SQ SCH (09:00)
[2019-06-01 09:22] LABS: Hematocrit 33.7 % (36.0-48.0); Hemoglobin 11.1 g/dL (12.0-15.0); Mean Cell Volume 93.8 fL (80.0-100.0); Mean Corpuscular HGB Conc 32.9 g/dL (31.0-36.0); Platelet Count 150 K/mcL (140-440); RBC 3.59 M/mcL (4.00-5.20); Red Cell Distribution Width 13.5 % (11.5-14.5); WBC 17.4 K/mcL (4.5-11.0)
[2019-06-01 09:51] LABS: Band Neutrophils % 33 % (0-10); Lymphocytes % 5 % (15-49); Monocytes % (Manual) 3 % (1-12); Platelet Estimate NORMAL (NORMAL); RBC Morphology NORMAL (NORMAL); Segmented Neutrophils % 59 % (38-78)
[2019-06-01 09:55] LABS: ALT/SGPT 20 U/l (0-40); AST/SGOT 17 U/l (0-37); Albumin 3.3 gm/dL (3.2-5.2); Albumin/Globulin Ratio 1.1 (1.0-2.3); Alkaline Phosphatase 92 U/L (39-117); Bilirubin,Direct < 0.2 mg/dL (0.0-0.3); Bilirubin,Total 0.3 mg/dL (0.0-1.0); Blood Urea Nitrogen 20 mg/dl (8-23); Carbon Dioxide 18 mmol/L (22-30); Chloride 105 mmol/L (96-108); Globulin 3.1 gm/dL (2.2-3.7); Glomerular Filtration Rate 73; Glucose 333 mg/dL (70-105); Lactate Dehydrogenase 288 U/L (94-250); Phosphorous 2.2 mg/dL (2.7-4.5); Triglycerides 204 mg/dl (<150); Uric Acid 2.6 mg/dL (2.5-8.0)
[2019-06-01] MEDS ORDERED: LIDOCAINE PATCH TOPICAL SCH ×2 (10:00→22:00)
[2019-06-01] MEDS: LEFLUNOMIDE 20 MG TABLET PO SCH (10:32)
--- NOTE | 2019-06-01 11:12 | Internal Med Progress Note ---
Medical - PN: Subj Patient information: Note initiated : 06/01/19 at 11:10 am Service Date, if different from initiated Date: [] Patient: Roro Simmons 73 y/o F admitted on 05/30/19 for fever, weakness. Chief Complaint: [] Interval history: Ms. Simmons is a 73 year old F Who first presented to the ER during the day for hematuria and some bladder pain and urinary incontinence (urinary and bowel incontinence is common for her because of her chronic back pain and sciatica she says). se was diagnosed with UTI and discharged. She presented back to the ED several hours later with rigors and nausea vomiting headache. Patient states she went to bed Thursday night feeling fine but woke up tired Thursday morning with some abdominal discomfort over the lower central region she had some discomfort with urination. Abdominal pain is achy and nonradiating. Symptoms worsened throughout the day including the Rigor's later on. Last urine tract infection was a few months ago she went into clinic and received antibiotic. She receives spinal injections by Dr. Davis for chronic back pain. She denies any chest pain coughing shortness of breath. Bowel habits are normal for her which includes occasional diarrhea or constipation. In the ED she is found to be tachycardic tachypneic with altered mental status. He had a lactate of 3.8. And increased creatinine from earlier in the day. She started becoming hypotensive around shift change earlier this morning. And was started on vasopressors. 05/31-patient currently on pressors. White count at 19,000 with 39% bands with procalcitonin 73.24. Patient due for cystoscopy/stent placement at noon. On broad antibiotic coverage. Gram-negative backslide on blood cultures. T-max 99.2. Systolic mid 90s, creatinine 1.6. Continue ICU care 06/01-patient doing well. No overnight events. White count downtrending to 17.4 with improving bandemia. Afebrile. Off pressors. Status post stenting. Gram-negative bacteremia ID Proteus but sensitivities pending. Anticipate discharge in 24 hours. Transfer to medical floor. Continue PT OT and nutrition support. - Constitutional Vitals: Vital Signs Temp Pulse Resp BP Pulse Ox 97.3 F 102 H 15 125/66 98 06/01/19 08:01 06/01/19 10:00 06/01/19 10:00 06/01/19 09:01 06/01/19 10:00 Period Temp Pulse Resp BP Sys/Patricio Pulse Ox Last 24 Hr 97.3 F-98.9 F 73-123 10-26 104-152/53-123 94-100 Intake and Output 05/31/19 06/01/19 06/01/19 21:59 05:59 13:59 Intake Total 870 410 Output Total 1 401 100 Balance 869 9 -100 Weight 166 lb Intake & Output: Intake & Output 05/31/19 06/01/19 06/01/19 21:59 05:59 13:59 Intake Total 870 410 Output Total 1 401 100 Balance 869 9 -100 Weight 166 lb Intake: IV 150 50 Zosyn 3.375 gm In Dextrose 5% 50 50 in Water 50 ml @ 100 mls/hr IV Q6H [facility] Rx#:[id number] Oral 720 360 Output: Void Amount 400 100 # of times incontinent of urine 1 1 Other: Meal Dinner Percent of Meal Consumed 100% Stool Size Copious Smear Stool Color Brown Brown Brown Yellow Stool Consistency Liquid Soft Liquid # Bowel Movements 1 1 # of times incontinent of 1 Bowels General appearance: no acute distress Exam: Intermittent anxiety Nonlabored breathing No lymphedema Nondistended abdomen Medical - PN: Obj Da - Labs CBC & Chem 7: 06/01/19 08:46 06/01/19 08:45 Labs: Abnormal Lab Results 06/01/19 06/01/19 05/31/19 08:46 08:45 03:45 WBC 17.4 H 19.0 H RBC 3.59 L 3.26 L Hgb 11.1 L 10.2 L Hct 33.7 L 30.3 L Gran % Lymph % (Auto) [place] % (Auto) Lymph # (Auto) [place] # (Auto) Band Neutrophils % 33 H 39 H Lymphocytes % 5 L 1 L RBC Morphology Hypochromasia VBG Lactic Acid Chloride Carbon Dioxide 18 L Anion Gap BUN Creatinine Glucose 333 H Calcium Phosphorus 2.2 L Magnesium GGT 46 H Alkaline Phosphatase Lactate Dehydrogenase 288 H Total Protein Albumin Globulin Triglycerides 204 H Urine Protein Urine Glucose (UA) Urine Occult Blood Ur Leukocyte Esterase Urine RBC Urine WBC 05/31/19 05/30/19 05/30/19 03:45 08:34 08:34 WBC 14.5 H RBC 3.18 L Hgb 9.9 L Hct 29.8 L Gran % Lymph % (Auto) [place] % (Auto) Lymph # (Auto) [place] # (Auto) Band Neutrophils % 37 H Lymphocytes % 4 L RBC Morphology Abnorm A Hypochromasia 1+ A VBG Lactic Acid Chloride 109 H Carbon Dioxide 19 L 17 L Anion Gap BUN 26 H Creatinine 1.6 H 1.6 H Glucose 202 H 139 H Calcium 8.0 L 7.4 L Phosphorus Magnesium 1.2 L GGT 55 H 67 H Alkaline Phosphatase Lactate Dehydrogenase 288 H 268 H Total Protein 5.5 L 4.7 L Albumin 2.7 L 2.8 L Globulin 1.9 L Triglycerides Urine Protein Urine Glucose (UA) Urine Occult Blood Ur Leukocyte Esterase Urine RBC Urine WBC 05/30/19 05/30/19 05/29/19 03:00 00:00 23:30 WBC RBC Hgb Hct Gran % Lymph % (Auto) [place] % (Auto) Lymph # (Auto) [place] # (Auto) Band Neutrophils % Lymphocytes % RBC Morphology Hypochromasia VBG Lactic Acid 3.9 H 3.8 H Chloride Carbon Dioxide Anion Gap BUN Creatinine Glucose Calcium Phosphorus Magnesium GGT Alkaline Phosphatase Lactate Dehydrogenase Total Protein Albumin Globulin Triglycerides Urine Protein 100 A Urine Glucose (UA) 50 A Urine Occult Blood >=1.0 A Ur Leukocyte Esterase 25 A Urine RBC > 182 H Urine WBC 20 H 05/29/19 05/29/19 23:30 23:30 WBC 4.0 L RBC 3.93 L Hgb Hct Gran % 94.7 H Lymph % (Auto) 5.1 L [place] % (Auto) 0.1 L Lymph # (Auto) 0.2 L [place] # (Auto) 0 L Band Neutrophils % Lymphocytes % RBC Morphology Hypochromasia VBG Lactic Acid Chloride Carbon Dioxide 19 L Anion Gap 17.0 H BUN Creatinine 1.3 H Glucose 262 H Calcium 8.5 L Phosphorus Magnesium GGT Alkaline Phosphatase 127 H Lactate Dehydrogenase Total Protein Albumin Globulin Triglycerides Urine Protein Urine Glucose (UA) Urine Occult Blood Ur Leukocyte Esterase Urine RBC Urine WBC Meds: Medications Acetaminophen (Tylenol) 650 mg PO Q6HP PRN PRN Reason: PAIN/FEVER > 101 Hydrocodone Bitart/Acetaminophen ([place] 5/325mg) 1 tab PO Q4HP PRN PRN Reason: PAIN LEVEL 3-6 Albuterol/Ipratropium (Duoneb) 3 ml NEB Q4HP PRN PRN Reason: Shortness Of Breath Cyclobenzaprine HCl (Flexeril) 10 mg PO TIDP PRN PRN Reason: muscle pain Diagnostic Test (Pha) (Accu-Chek) 1 each FS ACHS [facility] Last Admin: 06/01/19 07:43 Dose: 1 each Documented by: Enoxaparin Sodium (Lovenox) 40 mg SQ DAILY [facility] Last Admin: 06/01/19 07:58 Dose: 40 mg Documented by: Famotidine (Pepcid) 20 mg IV Q12 [facility] Last Admin: 06/01/19 07:57 Dose: 20 mg Documented by: Hydrocortisone Sodium Succinate (Solu-Cortef) 50 mg IV Q8 [facility] Last Admin: 06/01/19 05:19 Dose: 50 mg Documented by: Hydroxychloroquine Sulfate (Plaquenil) 200 mg PO BID [facility] Last Admin: 06/01/19 07:58 Dose: 200 mg Documented by: Potassium Chloride 40 meq/ (Dextrose) 520 mls @ 130 mls/hr IV UD PRN PRN Reason: Potassium < 3 Magnesium Sulfate (Magnesium Sulfate) 2 gm in 50 mls @ 50 mls/hr IV UD PRN PRN Reason: Magnesium </= 1.6 Norepinephrine Bitartrate 16 (mg/ Sodium Chloride) 250 mls @ 9.38 mls/hr IV Q24HP PRN; Protocol PRN Reason: Hypotension Sodium Chloride (Sodium Chloride 0.9%) 1,000 mls @ 20 mls/hr IV .Q24H [facility] Stop: 06/01/19 12:02 Last Admin: 05/31/19 23:46 Dose: Not Given Documented by: Piperacillin Sod/Tazobactam (Sod 3.375 gm/ Dextrose) 50 mls @ 100 mls/hr IV Q6H [facility]; Protocol Last Admin: 06/01/19 05:19 Dose: 100 mls/hr Documented by: Insulin Glargine (Lantus) 10 unit SQ DAILY [facility] Last Admin: 06/01/19 07:42 Dose: 10 unit Documented by: Insulin Human Lispro (Humalog) 0 unit SQ ACHS [facility]; Protocol Last Admin: 06/01/19 07:43 Dose: 8 unit Documented by: Leflunomide (Arava) 20 mg PO DAILY [facility] Last Admin: 06/01/19 10:32 Dose: 20 mg Documented by: Lidocaine (Lidoderm) 1 patch TOPICAL DAILY@1000 [facility] Last Admin: 06/01/19 10:32 Dose: 1 patch Documented by: Lidocaine (Lidoderm) 0 patch TOPICAL DAILY@2200 [facility] Last Admin: 06/01/19 03:13 Dose: 1 patch Documented by: Ondansetron HCl (Zofran) 4 mg IV Q4-6HP PRN PRN Reason: Nausea And Vomiting Polyethylene Glycol (Miralax) 17 gm PO DAILYP PRN PRN Reason: Constipation Potassium Chloride (Kdur) 40 meq PO UD PRN PRN Reason: Potssium is 3-3.5 Potassium Chloride (Kdur) 40 meq PO UD PRN PRN Reason: Potassium < 3 [facility]) [facility] Last Admin: 06/01/19 07:58 Dose: 5 mg Documented by: Pregabalin (Lyrica) 25 mg PO TID [facility] Last Admin: 06/01/19 07:58 Dose: Not Given Documented by: Prochlorperazine (Compazine) 10 mg IV Q6HP PRN PRN Reason: Nausea And Vomiting Promethazine HCl (Phenergan) 12.5 mg IV Q6HP PRN PRN Reason: Nausea And Vomiting Senna (Senokot) 2 tab PO HSP PRN PRN Reason: Constipation Sodium Chloride (Saline Flush) 10 ml IV Q8 [facility] Last Admin: 06/01/19 05:20 Dose: 10 ml Documented by: Tamsulosin HCl (Flomax) 0.4 mg PO HS [facility] Last Admin: 05/31/19 21:49 Dose: 0.4 mg Documented by: Medical - PN: A/P - Time Spent With Patient Total time spent is greater than 50% in coordination of care (as documented) at patient's floor/unit and/or counseling patient: 25 - 35 minutes (1) Bacteremia due to Gram-negative bacteria Status: Acute Assessment and plan: * Proteus bacteremia secondary to obstructive uropathy-on broad antibiotic coverage, de-escalate based on sensitivities * Obstructive uropathy-status post cystoscopy/stenting. Clinically improving. White count downtrending. Pain improved * Septic shock secondary to Proteus bacteremia -now off vasopressors. White count downtrending from 19-17.2. * Acute kidney injury secondary to septic shock endorgan dysfunction-creatinine down from 1.6-> 0.8. * Acute encephalopathy-clinically improved * DM type II-continue sliding scale insulin * History rheumatoid arthritis -start leflunomide , Continue hydroxychloroquine, switch to prednisone * History of chronic back pain/sciatica-follows with pain clinic Dr. Aragon * History of hypertension hold antihypertensives * Prophylaxis Lovenox Plan * De-escalate antibiotics based on sensitivities * Transfer to medical floor * DC stress to steroid * Start leflunomide * CC diet/basal prandial insulin * Discharge planning likely in 24 hours Current Visit: Yes Medical - PN: Qual - Stroke Symptom Onset Unknown: No - VTE Deep Vein Thrombosis/Pulmonary Embolism Present on Admission: No
[2019-06-01] MEDS ORDERED: CYCLOBENZAPRINE 10 MG TABLET PO PRN ×2 (11:14→11:51)
[2019-06-01] MEDS ORDERED: HYDROcodone/APAP 5/325MG TABLET PO PRN (11:51)
[2019-06-01] MEDS ORDERED: MAGNESIUM SULFATE 2 GM/50 ML BAG IV PRN (11:51)
[2019-06-01] MEDS ORDERED: POTASSIUM CHLORIDE 40 MEQ in DEXTROSE 5% IN WATER 500 ML IV PRN (11:51)
[2019-06-01] MEDS ORDERED: POLYETHYLENE GLYCOL 3350 17 GM PACKET PO PRN (11:51)
[2019-06-01] MEDS ORDERED: ACETAMINOPHEN 325 MG TABLET PO PRN (11:51)
[2019-06-01] MEDS ORDERED: SENNOSIDES 1 TABLET PO PRN (11:51)
[2019-06-01] MEDS ORDERED: ONDANSETRON 4 MG/2 ML VIAL IV PRN (11:51)
[2019-06-01] MEDS ORDERED: IPRATROPIUM/ALBUTEROL 3 ML AMPUL.NEB NEB PRN (11:51)
[2019-06-01] MEDS ORDERED: POTASSIUM CHLORIDE 20 MEQ TABLET PO PRN ×2 (11:51)
[2019-06-01] MEDS ORDERED: PROMETHAZINE 25 MG/ML VIAL IV PRN (11:51)
[2019-06-01] MEDS ORDERED: PROCHLORPERAZINE 10 MG/2 ML VIAL IV PRN (11:51)
[2019-06-01] MEDS ORDERED: PIPERACILLIN SODIUM/TAZOBACTAM 3.375 GM in DEXTROSE 5% IN WATER 50 ML IV SCH (12:00)
[2019-06-01] MEDS ORDERED: PREGABALIN 25 MG CAPSULE PO SCH (15:00)
[2019-06-01] MEDS ORDERED: TAMSULOSIN 0.4 MG CAPSULE PO SCH (21:00)
[2019-06-01] MEDS: CIPROFLOXACIN 500 MG TABLET PO SCH (21:17)
[2019-06-02] MEDS: 0.9 % SODIUM CHLORIDE 10 ML SYRINGE IV SCH (04:55)
[2019-06-02 05:34] LABS: Hematocrit 29.7 % (36.0-48.0); Hemoglobin 9.9 g/dL (12.0-15.0); Mean Cell Volume 93.4 fL (80.0-100.0); Mean Corpuscular HGB Conc 33.2 g/dL (31.0-36.0); Mean Platelet Volume 10.7 fL (7.4-10.4); Platelet Count 135 K/mcL (140-440); RBC 3.19 M/mcL (4.00-5.20); Red Cell Distribution Width 13.5 % (11.5-14.5); WBC 11.6 K/mcL (4.5-11.0)
[2019-06-02 06:14] LABS: ALT/SGPT 17 U/l (0-40); AST/SGOT 13 U/l (0-37); Albumin/Globulin Ratio 1.2 (1.0-2.3); Alkaline Phosphatase 86 U/L (39-117); Bilirubin,Direct < 0.2 mg/dL (0.0-0.3); Bilirubin,Total 0.4 mg/dL (0.0-1.0); Blood Urea Nitrogen 19 mg/dl (8-23); Calcium 8.8 mg/dl (8.6-10.4); Carbon Dioxide 22 mmol/L (22-30); Chloride 107 mmol/L (96-108); Globulin 2.5 gm/dL (2.2-3.7); Glomerular Filtration Rate 73; Glucose 127 mg/dL (70-105); Lactate Dehydrogenase 277 U/L (94-250); Phosphorous 2.6 mg/dL (2.7-4.5); Triglycerides 193 mg/dl (<150); Uric Acid 3.6 mg/dL (2.5-8.0)
[2019-06-02 07:55] LABS: Band Neutrophils % 3 % (0-10); Lymphocytes % 9 % (15-49); Platelet Estimate DECREASED (NORMAL); RBC Morphology NORMAL (NORMAL); Segmented Neutrophils % 88 % (38-78)
[2019-06-02] MEDS ORDERED: predniSONE 5 MG TABLET PO SCH (08:00)
[2019-06-02] MEDS ORDERED: ENOXAPARIN 40 MG/0.4 ML SYRINGE SQ SCH (09:00)
[2019-06-02] MEDS ORDERED: LISINOPRIL 5 MG TABLET PO SCH (09:00)
[2019-06-02] MEDS ORDERED: INSULIN GLARGINE, HUMAN 1 UNIT/0.01 ML SQ SCH (09:00)
[2019-06-02] MEDS ORDERED: LEFLUNOMIDE 20 MG TABLET PO SCH ×2 (09:00)
[2019-06-02] MEDS: FAMOTIDINE/PF 20 MG/2 ML VIAL IV SCH (09:10)
[2019-06-02] MEDS: CIPROFLOXACIN 500 MG TABLET PO SCH (09:10)
[2019-06-02] MEDS: HYDROXYCHLOROQUINE 200 MG TABLET PO SCH (09:10)
[2019-06-02] MEDS: LEFLUNOMIDE 20 MG TABLET PO SCH (09:12)
[2019-06-02] MEDS: INSULIN LISPRO 1 UNIT/0.01 ML UNIT SQ SCH ×2 (09:13→11:51)
--- NOTE | 2019-06-02 09:28 | Discharge Summary ---
Medical - DS: Prov Patient information: Note initiated : 06/02/19 at 9:25 am Service Date, if different from initiated Date: [] Patient: Roro Simmons 73 y/o F admitted on 05/30/19 for fever, weakness. Chief Complaint: [] Date of admission: 05/30/19 01:28 Discharge date: 06/02/19 Primary care physician: Rodriguez Juarez Consults: 05/30/19 Consult to Physician [CONS] Stat Comment: Consulting Provider: Lyndon Olson Reason For Exam: Physician to Consult 05/30/19 11:57 Consult to Physician [CONS] Routine Comment: hydronephrosis Consulting Provider: Rashid Alfred Reason For Exam: Physician to Consult Medical - DS: Meds - Discharge Medications Prescriptions: Ciprofloxacin [Cipro] 500 mg PO BID #10 tab Active and Home Medications: Home Medications lisinopril 5 mg tablet 5 mg PO QDAY #90 tab 12/14/18 [Rx Confirmed 05/30/19 Last Taken 05/05/19] insulin glargine (U-100) 100 unit/mL (3 mL) subcutaneous pen 10 unit SUB-Q QDAY #9 ml 04/05/19 [Rx Confirmed 05/30/19 Last Taken 05/29/19] cholecalciferol (vitamin D3) 50,000 unit capsule 50,000 unit PO MONTHLY #12 cap 04/28/19 [Rx Confirmed 05/30/19 Last Taken 05/05/19] hydroxychloroquine 200 mg tablet 200 mg PO BID #180 tab 04/28/19 [Rx Confirmed 05/30/19 Last Taken 05/29/19] prednisone 5 mg tablet 5 mg PO QDAY #30 tab 04/28/19 [Rx Confirmed 05/30/19 Last Taken 05/29/19] leflunomide 20 mg tablet 20 mg PO QDAY #90 tab 05/12/19 [Rx Confirmed 05/30/19 Last Taken 05/29/19] blood sugar diagnostic strips See Dose Instructions .ROUTE .MEDSUPPLY #100 each 05/27/19 [Rx Last Taken 05/29/19] lancets 26 gauge See Dose Instructions .ROUTE .MEDSUPPLY #100 each 05/27/19 [Rx Last Taken 05/29/19] Cyclobenzaprine [Flexeril] 10 mg PO TIDP PRN 05/30/19 [History Confirmed 05/30 Last Taken 05/29/19] Ciprofloxacin [Cipro] 500 mg PO BID #10 tab 06/01/19 [Rx Last Taken Unknown] Medical - DS: Hosp Hospital Course: Discharge diagnosis * Proteus bacteremia secondary to obstructive uropathy-sensitive to ciprofloxacin. Continue additional 5 days oral ciprofloxacin on discharge. * Obstructive uropathy-status post cystoscopy/stenting. Clinically improved. * Septic shock secondary to Proteus bacteremia -clinically resolved with management per guidelines. Off pressors. White count downtrending from 19- >11 continue additional 5 days oral ciprofloxacin * Hypokalemia status post 80 meq replacement * Acute kidney injury secondary to septic shock endorgan dysfunction-creatinine down from 1.6-> 0.8. * Acute encephalopathy-clinically improved * DM type II-continue sliding scale insulin * History rheumatoid arthritis -continue home dose leflunomide, hydroxychloroquine, prednisone * History of chronic back pain/sciatica-follows with pain clinic Dr. Aragon * History of hypertension restart home dose antihypertensives Brief hospital course Ms. Simmons is a 73 year old F Who first presented to the ER during the day for hematuria and some bladder pain and urinary incontinence (urinary and bowel incontinence is common for her because of her chronic back pain and sciatica she says). se was diagnosed with UTI and discharged. She presented back to the ED several hours later with rigors and nausea vomiting headache. Patient states she went to bed Thursday night feeling fine but woke up tired Thursday morning with some abdominal discomfort over the lower central region she had some discomfort with urination. Abdominal pain is achy and nonradiating. Symptoms worsened throughout the day including the Rigor's later on. Last urine tract infection was a few months ago she went into clinic and received antibiotic. She receives spinal injections by Dr. Davis for chronic back pain. She denies any chest pain coughing shortness of breath. Bowel habits are normal for her which includes occasional diarrhea or constipation. In the ED she is found to be tachycardic tachypneic with altered mental status. He had a lactate of 3.8. And increased creatinine from earlier in the day. She started becoming hypotensive around shift change earlier this morning. And was started on vasopressors. 05/31-patient currently on pressors. White count at 19,000 with 39% bands with procalcitonin 73.24. Patient due for cystoscopy/stent placement at noon. On broad antibiotic coverage. Gram-negative backslide on blood cultures. T-max 99 .2. Systolic mid 90s, creatinine 1.6. Continue ICU care 06/01-patient doing well. No overnight events. White count downtrending to 17.4 with improving bandemia. Afebrile. Off pressors. Status post stenting. Gram- negative bacteremia ID Proteus but sensitivities pending. Anticipate discharge in 24 hours. Transfer to medical floor. Continue PT OT and nutrition support. 06/02-patient doing well. No overnight events. Abdominal pain resolved. Fever chills. White count down to 11,000. Urology recommends removal of stent on Thursday. Continue antibiotics for additional 5 days oral ciprofloxacin based on sensitivities. Recommend follow-up primary care physician in 1 week Discharge diagnosis: . - Time Spent with Patient Total time spent providing and/or coordinating discharge services: Greater than 30 minutes Medical - DS: Exam - Constitutional Vitals: Vital Signs Temp Pulse Pulse Resp BP BP Pulse Ox 06/02/19 06:53 97.6 F 20 139/75 96 06/02/19 04:00 98.4 F 75 16 146/70 98 06/02/19 00:00 98.5 F 76 16 121/62 98 06/01/19 20:00 89 16 98 06/01/19 19:18 97.9 F 89 16 132/76 98 06/01/19 17:18 97.6 F 83 16 154/71 98 06/01/19 11:25 98.2 F 85 19 129/76 96 06/01/19 10:00 102 H 15 98 Intake and Output 06/01/19 06/02/19 06/02/19 21:59 05:59 13:59 Intake Total 240 700 Balance 240 700 Intake: Oral 240 700 Other: Meal Dinner Percent of Meal Consumed 75% Urine Appearance Uretheral (Rodirguez) Clear # Voids 5 Weight 167 lb 8 oz Medical - DS: Data Labs on day of discharge: Labs from last 24 hours 06/02/19 06/02/19 06/01/19 03:59 03:59 08:46 WBC 11.6 H RBC 3.19 L Hgb 9.9 L Hct 29.7 L MCV 93.4 MCH 31.0 MCHC 33.2 RDW 13.5 Plt Count 135 L MPV 10.7 H Total Counted 100 100 Seg Neutrophils % 88 H 59 Band Neutrophils % 3 33 H Lymphocytes % 9 L 5 L Monocytes % (Manual) 3 Platelet Estimate Decreased Normal RBC Morphology Normal Normal Sodium 141 Potassium 2.9 L* Chloride 107 Carbon Dioxide 22 Anion Gap 12.0 BUN 19 Creatinine 0.8 GFR Calculation 73 Glucose 127 H Uric Acid 3.6 Calcium 8.8 Phosphorus 2.6 L Magnesium 1.8 Total Bilirubin 0.4 Direct Bilirubin < 0.2 GGT 35 AST 13 ALT 17 Alkaline Phosphatase 86 Lactate Dehydrogenase 277 H Total Protein 5.5 L Albumin 3.0 L Globulin 2.5 Albumin/Globulin Ratio 1.2 Triglycerides 193 H 06/01/19 08:45 WBC RBC Hgb Hct MCV MCH MCHC RDW Plt Count MPV Total Counted Seg Neutrophils % Band Neutrophils % Lymphocytes % Monocytes % (Manual) Platelet Estimate RBC Morphology Sodium 136 Potassium 3.3 Chloride 105 Carbon Dioxide 18 L Anion Gap 13.0 BUN 20 Creatinine 0.8 GFR Calculation 73 Glucose 333 H Uric Acid 2.6 Calcium 9.0 Phosphorus 2.2 L Magnesium 1.9 Total Bilirubin 0.3 Direct Bilirubin < 0.2 GGT 46 H AST 17 ALT 20 Alkaline Phosphatase 92 Lactate Dehydrogenase 288 H Total Protein 6.4 Albumin 3.3 Globulin 3.1 Albumin/Globulin Ratio 1.1 Triglycerides 204 H Preliminary micro results at discharge 05/29/19 23:36 Blood Culture - Preliminary Blood 05/29/19 23:30 Blood Culture - Preliminary Blood Gram negative bacillus Medical - DS: A/P - Patient/Caregiver Discharge Instructions Activity: increase activity as tolerated Diet: Regular Diet Additional Instructions: Continue antibiotic for 5 days Follow-up primary care physician in 7 days Remove stent on Thursday as per urology recommendations Return to ER if diarrhea, fever, chills, abdominal pain noted Prescriptions: Ciprofloxacin [Cipro] 500 mg PO BID #10 tab - Problem Maintenance (1) Bacteremia due to Gram-negative bacteria Status: Acute - Follow up Plan Follow up with: Rodriguez Juarez PA-C [Primary Care Provider] - Disposition: Home, Self-Care Prognosis: Critical Rehab Potential: Fair I certify that the patient requires SNF services: No Overall status at discharge: patient is progressing back to baseline Medical - DS: Qual - VTE Deep Vein Thrombosis/Pulmonary Embolism Present on Admission: No
[2019-06-02] MEDS ORDERED: LIDOCAINE PATCH TOPICAL SCH (10:00)
[2019-06-02] MEDS ORDERED: POTASSIUM CHLORIDE 20 MEQ TABLET PO ONE (12:00)
== END 2019-06-02 13:15 | disposition home or self-care (01) | DRG 853 ==
LOC: ED 22:56 → ICU 05-30 01:25 → MEDSUR 06-01 14:05
PROVIDERS: ADMIT Internal Medicine; ATTEND Internal Medicine